=== PATIENT | female | born 1985 | race Caucasian/White ===

== ENCOUNTER 2018-10-19 12:33 | Emergency (ER) | payer MEDICAID ==
--- NOTE | 2018-10-19 13:21 | EDM.PDOC ---
ED HPI GENERAL MEDICAL PROBLEM - General Chief Complaint: General Stated Complaint: DOG HIT HER IN FACE Time Seen by Provider: 10/19/18 12:34 Source of Information: Reports: Patient, Family, RN, RN Notes Reviewed History Limitations: Reports: No Limitations - History of Present Illness INITIAL COMMENTS - FREE TEXT/NARRATIVE: Patient presents to the ED at [facility] for the evaluation of facial pain, nose pain, and left orbit swelling. Patient states last Friday she was hit on the face by her Pitbull dog accidentally. She states she was laying on the bed doing some writing, when she heard the dog knock something over in the room. As the patient looked to see what happened, the dog apparently jumped up on the bed , hitting her in the left face. Patient states she has some nasal pain. Left obit is tender. No nasal airway problems. No visual field disturbances. No headache. She states she has broken her nose in the past and is just worried it may be broken again. No neck or back pain. Denies any focal neurological problems. She states she is merely "just wanting to get this checked out." Onset Date: 10/16/18 ED ROS GENERAL - Review of Systems Review Of Systems: See Below Constitutional: Denies: Fever, Chills HEENT: Reports: Nose Pain, Other (left globe swelling). Denies: Nosebleed, Rhinitis, Sinus Problem Respiratory: Denies: Shortness of Breath, Cough Cardiovascular: Denies: Chest Pain, Palpitations Skin: Reports: No Symptoms Neurological: Reports: No Symptoms ED EXAM, GENERAL - Physical Exam Exam: See Below Exam Limited By: No Limitations General Appearance: Alert, No Apparent Distress Eye Exam: Right Eye: Normal Inspection, Left Eye: Periorbital Changes (swelling of lower left globe), Bilateral Eye: EOMI, PERRL Ears: Normal External Exam, Normal Canal, Normal TMs Ear Exam: Bilateral Ear: TM normal Nose: Normal Inspection, No Blood, Nasal Tenderness. No: Nasal Deformity, Nasal Swelling, Nasal Drainage Throat/Mouth: Normal Inspection, Normal Oropharynx, No Airway Compromise Head: Facial Swelling (Left lower globe) Neck: Supple, Non-Tender, Full Range of Motion Respiratory/Chest: No Respiratory Distress, Lungs Clear, Normal Breath Sounds Cardiovascular: Normal Peripheral Pulses, Regular Rate, Rhythm Peripheral Pulses: 2+: Radial (L), Radial (R) Neurological: Alert, Oriented, Normal Cognition, No Motor/Sensory Deficits Skin Exam: Warm, Dry, Intact, Normal Color Course - Orders/Labs/Meds Orders: Active Orders 24 hr Category Date Time Status Maxillofacial w/o CM [Max Facial Sinus wo Cont] [CT] Exams 10/19/18 12:40 Taken Stat - Radiology Interpretation Free Text/Narrative:: CT Max/Facial: Age-indeterminate right nasal bone fracture with no significant displacement See scanned report in EMR for details CT Results Date: 10/19/18 CT Results Time: 13:18 Departure - Departure Time of Disposition: 13:27 Disposition: Home, Self-Care 01 Condition: Good Clinical Impression: Nasal injury Qualifiers: Encounter type: initial encounter Qualified Code(s): S09.92XA - Unspecified injury of nose, initial encounter Blunt injury, left eye Qualifiers: Encounter type: initial encounter Qualified Code(s): S05.8X2A - Other injuries of left eye and orbit, initial encounter - Discharge Information *PRESCRIPTION DRUG MONITORING PROGRAM REVIEWED*: Not Applicable *COPY OF PRESCRIPTION DRUG MONITORING REPORT IN PATIENT KIYA: Not Applicable Instructions: Nasal Fracture Forms: ED Department Discharge Additional Instructions: 1. Stay well hydrated and rest 2. CT scan was normal, only showed an old right nasal fracture 3. Apply ice to face/nasal several times a day for the next couple days 4. May alternate Tylenol/Advil as needed for pain 5. Avoid any heaving blowing of nose or nasal manipulations for the next couple of days 6. See your PCP as symptoms warrant - Problem List Review Problem List Initiated/Reviewed/Updated: Yes - My Orders Last 24 Hours: My Active Orders 10/19/18 12:40 Maxillofacial w/o CM [Max Facial Sinus wo Cont] [CT] Stat - Assessment/Plan Last 24 Hours: My Active Orders 10/19/18 12:40 Maxillofacial w/o CM [Max Facial Sinus wo Cont] [CT] Stat Assessment:: Blunt injury to face Left orbit swelling Nasal pain Plan: CT scan discussed with patient. Old right nasal fracture, but no new findings. Recommend symptomatic treatment. Use ice for swelling. Tylenol/Advil for pain. Discussed this may take a few more days to fully get under control. Follow up with PCP as symptoms warrant.
--- NOTE | 2018-10-19 13:22 | CT ---
[id number] CT/CT Facial Bones WO IV EXAM: FACIAL BONE CT WITHOUT CONTRAST. INDICATION: Blunt injury to left nose, face and COMPARISON: None. DISCUSSION: Age-indeterminate essentially nondisplaced right nasal bone fracture. No other facial bone fractures are identified. Soft tissue swelling within the central forehead along the bridge of the nose. The paranasal sinuses are normally aerated. The orbits and facial soft tissues are unremarkable. IMPRESSION: 1. Age-indeterminate right nasal bone fracture with no significant displacement. Ole Giordano MD 10/19/18 [id number] Thank you for allowing us to participate in the care of your patient.
== END 2018-10-19 13:45 | disposition home or self-care (01) ==
LOC: VM.ED 12:33
DX: S09.92XA Unspecified injury of nose, initial encounter (principal); S05.8X2A Other injuries of left eye and orbit, initial encounter; W54.1XXA Struck by dog, initial encounter
CPT/HCPCS: 70486; 99283-25

== ENCOUNTER 2024-04-28 17:03 | Emergency (ER) | payer MEDICAID | END 2024-04-28 17:23 | disposition home or self-care (01) | LOC: VM.ED 17:03 | DX: L08.9 Local infection of the skin and subcutaneous tissue, unspecified (principal); Z79.2 Long term (current) use of antibiotics; Z79.899 Other long term (current) drug therapy | CPT/HCPCS: 99283 ==

== ENCOUNTER 2025-06-11 10:04 | Emergency (ER) | payer MEDICAID ==
[2025-06-11 10:36] LABS: GLUCOSE,URINE NEGATIVE (NEGATIVE); OCCULT BLOOD,URINE MODERATE (NEGATIVE)
[2025-06-11 10:39] LABS: APPEARANCE,URINE CLOUDY (CLEAR)
[2025-06-11 10:40] LABS: SQUAMOUS EPITHELIAL CELLS,UR FEW /HPF (NOT SEEN)
== END 2025-06-11 10:55 | disposition home or self-care (01) ==
LOC: VM.ED 10:04
DX: N30.90 Cystitis, unspecified without hematuria (principal); Z79.899 Other long term (current) drug therapy
CPT/HCPCS: 81001; 87086; 87088; 87186; 99283; 99284